=== PATIENT | male | born 1940 | race Caucasian/White ===

== ENCOUNTER 2016-11-23 15:55 | Outpatient (CLI) | payer MEDICARE, OTHER ==
[2016-05-11 11:20] VITALS: BP 152/58
== END 2016-11-23 15:56 ==
LOC: LAB 15:55
PROVIDERS: ATTEND Family Medicine
DX: Z51.81 Encounter for therapeutic drug level monitoring (principal); Z79.01 Long term (current) use of anticoagulants; I48.91 Unspecified atrial fibrillation
CPT/HCPCS: 36415; 85610

== ENCOUNTER 2016-11-24 13:18 | Emergency (ER) | payer MEDICARE, OTHER ==
--- NOTE | 2016-11-24 13:44 | ED Physician Documentation ---
General Adult - HISTORIAN Historian: patient, other - HPI Stated Complaint: loss of appetite Chief Complaint: General Adult Onset: days ago (5) Timing: still present Modifying Factors: worse with eating Quality: nausea Further Comments: yes (5 day history of nausea and stomach upset/achy pain. Constant in nature. No UTI symptoms, no fever or chills. feels slightly bloated. ) - ROS CONST: denies: fever, chills - PAST HX Past History: other (CAD) Other History: diabetes Type 2 (has been i nthe 200-300s) Surgeries/Procedures: cardiac bypass (4 vessels), cholecystectomy, other Immunizations: denies: influenza Allergies/Adverse Reactions: Allergies Allergy/AdvReac Type Severity Reaction Status Date / Time No Known Allergies Allergy Verified 11/24/16 13:36 Home Medications: Ambulatory Orders Medication Instructions Recorded Potassium Chloride [Klor-Con 10] 10 meq PO QID 05/29/15 Aspirin [Adult Low Dose Aspirin EC] 81 mg PO DAILY 04/28/16 Omeprazole [Prilosec] 20 mg PO DIRECTED #60 capsule. 11/24/16 - SOCIAL HX Smoking History: non-smoker, quit less than 1 year (3 month), greater than 1 pack/day (2-21.2 ppd prior to quitting) Alcohol Use: none Drug Use: none - FAMILY HX Family History: Yes - VITAL SIGNS Vital Signs: Vital Signs Temp Pulse Resp BP Pulse Ox 99.2 F 88 16 145/74 98 11/24/16 13:33 11/24/16 13:33 11/24/16 13:33 11/24/16 13:33 11/24/16 13:33 - REVIEWED ASSESSMENTS Nursing Assessment Reviewed: Yes Vitals Reviewed: Yes Progress - Results/Orders Results/Orders: Patient did get some relief from zofran General Adult Physical Exam - PHYSICAL EXAM GENERAL APPEARANCE: mild distress NECK: normal inspection, supple RESPIRATORY: no resp distress, chest non-tender, breath sounds normal. No: wheezes, rales, rhonchi CVS: reg rate & rhythm, heart sounds normal, equal pulses, no murmur ABDOMEN: soft, no organomegaly, normal bowel sounds, no abdominal bruit, no distension, tenderness (epigastric area). No: rebound, distended, guarding BACK: normal inspection, no CVA tenderness EXTREMITIES: non-tender, normal range of motion NEURO: mood/affect nml, cognition normal Discharge Clincal Impression: Epigastric abdominal pain Gastritis Qualifiers: Gastritis type: unspecified gastritis Chronicity: acute Gastritis bleeding: without bleeding Qualified Code(s): K29.00 - Acute gastritis without bleeding Prescriptions: Omeprazole [Prilosec] 20 mg PO DIRECTED #60 capsule.dr Referrals: Valerie Norton MD [Primary Care Provider] - 2 Days Additional Instructions: Start taking Omeprazole 20mg twice a day for one week then just once a day. Avoid irritating substances such as possibly caffeine, spicy food, alcohol. Stay off tobacco. Watch for blood in any vomit. Watch for stools becoming dark or blood in stools. To follow-up with Dr Norton in one to two weeks. Home Medications: Ambulatory Orders Potassium Chloride [Klor-Con 10] 10 meq PO QID 05/29/15 Aspirin [Adult Low Dose Aspirin EC] 81 mg PO DAILY 04/28/16 Omeprazole [Prilosec] 20 mg PO DIRECTED #60 capsule. 11/24/16 Condition: Stable Disposition: 01 HOME, SELF-CARE Decision to Admit: NO Date of Decison to Admit: 11/24/16 Decision Time: 15:49
[2016-11-24] MEDS ORDERED: MAGNESIUM HYDROXIDE/AL HYDROX 30 ML UDC PO ONE (14:26)
[2016-11-24] MEDS ORDERED: Lidocaine 2%Visc 15ml 20 MG/ML UDC ONE (14:26)
--- NOTE | 2016-11-24 14:39 | Diagnostic Imaging Report ---
ALVINO FALLON [facility] [address] [facility].[address] [address] Report Submission Date: Nov 24, 2016 2:34:47 PM MIRROR DEPARTMENT SUPERVISOR Patient Study Name: CONRADO LAUGHLIN Date: Nov 24, 2016 1:57:31 PM MIRROR DEPARTMENT SUPERVISOR Modality Type: CR Gender: M Description: ABDOMEN : 40 Institution: [facility] Physician: ALVINO FALLON Obstructive series with chest x-ray CLINICAL HISTORY: Epigastric pain. Nausea and vomiting. FINDINGS: Examination of the chest in single upright view demonstrates postoperative changes with multiple sternotomy wires. Cardiac silhouette is prominent and the aorta is atherosclerotic. Lungs are free of coalescent infiltrate. Examination of the abdomen in supine and upright views demonstrates postoperative changes with multiple surgical clips in the right upper quadrant from presumed prior cholecystectomy. Degenerative changes and mild dextroscoliosis are seen in the lumbar vertebrae. Left total hip replacement is demonstrated. There is no evidence of obstruction or free air. There are no unusual intra- abdominal calcifications. IMPRESSION: Postoperative abdomen. Lumbar spondylosis. Aortic atherosclerosis and left ventricular prominence. No obstruction or free air. Electronically signed on Nov 24, 2016 2:34:47 PM MIRROR DEPARTMENT SUPERVISOR by: Joe BOWLES
[2016-11-24 14:47] LABS: BASOPHILS % 0.2 (0.0-1.5); EOSINOPHILS % 1.6 % (0.0-6.8); LYMPHOCYTES # 1.4 # k/uL (0.6-4.0); MEAN CORPUSCULAR HEMOGLOBIN 29.5 pg (28.0-34.0); MONOCYTES # 0.6 # k/uL (0.0-0.9); MONOCYTES % 5.3 % (0.0-11.0); NEUTROPHILS # 8.7 # k/uL (1.4-7.7)
[2016-11-24] MEDS: MAG HYDROX/AL HYDROX/SIMETH 30 ML, Lidocaine 2%Visc 15ml 20 MG, PHENobarb/HYOSCY/ATROPI... PO ONE ×3 (14:56)
[2016-11-24] MEDS ORDERED: ONDANSETRON HCL/PF 4 MG/ 2ML VIAL ONE (15:04)
[2016-11-24] MEDS: ONDANSETRON HCL/PF 4 MG/ 2ML VIAL IVP ONE (15:05)
[2016-11-24 16:14] VITALS: BP 140/72
== END 2016-11-24 16:05 | disposition home or self-care (01) ==
LOC: ED 13:18
DX: K29.00 Acute gastritis without bleeding (principal)
CPT/HCPCS: 74022; 80053; 82150; 85025; A9270; J2405; 96374; 99283; 99284; S1016

== ENCOUNTER 2017-03-30 11:01 | Outpatient (CLI) | payer MEDICARE, OTHER ==
[2017-03-30 11:24] LABS: eGFR (African) 54; eGFR (Non-African) 45
== END 2017-03-30 11:02 ==
LOC: LABRHC 11:01
PROVIDERS: ATTEND Family Medicine
DX: E11.8 Type 2 diabetes mellitus with unspecified complications (principal); R41.3 Other amnesia
CPT/HCPCS: 36415; 80053; 83036; 84443

== ENCOUNTER 2017-05-11 14:15 | Emergency (ER) | payer MEDICARE, OTHER ==
--- NOTE | 2017-05-11 14:50 | ED Physician Documentation ---
General Adult - HISTORIAN Historian: patient - HPI Stated Complaint: swelling and wounds of feet and ankles Chief Complaint: General Adult Onset: other (? 2months ago) Timing: worse Further Comments: yes (Patient is diabetic and has developed wounds on both lankle area. Has been gradually getting bigger. Treating with alcohol and MERY, wrapping legs. Wounds seem to be getting bigger.) - ROS CONST: no problems - PAST HX Past History: other (CAD) Other History: diabetes Type 2 Surgeries/Procedures: cardiac bypass Allergies/Adverse Reactions: Allergies Allergy/AdvReac Type Severity Reaction Status Date / Time No Known Allergies Allergy Verified 05/11/17 14:38 Home Medications: Ambulatory Orders Medication Instructions Recorded Potassium Chloride [Klor-Con 10] 10 meq PO QID 05/29/15 Aspirin [Adult Low Dose Aspirin EC] 81 mg PO DAILY 04/28/16 - SOCIAL HX Smoking History: non-smoker, quit less than 1 year (6 months ago) Alcohol Use: none Drug Use: none - FAMILY HX Family History: No - VITAL SIGNS Vital Signs: Vital Signs Temp Pulse Resp BP Pulse Ox 140/72 11/24/16 16:11 - REVIEWED ASSESSMENTS Nursing Assessment Reviewed: Yes Vitals Reviewed: Yes General Adult Physical Exam - PHYSICAL EXAM GENERAL APPEARANCE: no distress RESPIRATORY: no resp distress, chest non-tender CVS: reg rate & rhythm, heart sounds normal SKIN: other (right anterior ankle 5x2.5; Left anterior ankle 2x1cm, 1x1cm) EXTREMITIES: non-tender, edema (4 plus) NEURO: oriented X3, mood/affect nml, cognition normal Discharge Clincal Impression: Venous stasis dermatitis of both lower extremities, Venous stasis ulcer Venous stasis ulcer of ankle Qualifiers: Laterality: right Qualified Code(s): I83.013 - 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 Watch for any signs of infection. Try to keep legs elevated as much as possible. Change Aquacel Ag dressing every day. Use Elta cream to legs then use Kermit wrap starting with the toes. Decrease salt intake. Home Medications: Ambulatory Orders Potassium Chloride [Klor-Con 10] 10 meq PO QID 05/29/15 Aspirin [Adult Low Dose Aspirin EC] 81 mg PO DAILY 04/28/16 Condition: Good Disposition: 01 HOME, SELF-CARE Decision to Admit: NO Date of Decison to Admit: 05/11/17 Decision Time: 15:16
[2017-05-11] MEDS: MENTHOL/ZINC OXIDE 1 APPL TUBE TP SCH (15:30)
[2017-05-11] MEDS ORDERED: MENTHOL/ZINC OXIDE 1 APPL TUBE TP SCH (15:44)
[2017-05-11 15:57] VITALS: BP 140/53
== END 2017-05-11 15:54 | disposition home or self-care (01) ==
LOC: ED 14:15
DX: I87.2 Venous insufficiency (chronic) (peripheral) (principal); I83.013 Varicose veins of right lower extremity with ulcer of ankle
CPT/HCPCS: 99283

== ENCOUNTER 2017-06-25 10:52 | Emergency (ER) | payer MEDICARE, OTHER ==
--- NOTE | 2017-06-25 11:11 | ED Physician Documentation ---
General Adult - HISTORIAN Historian: patient - HPI Stated Complaint: scrotal swelling Chief Complaint: General Adult Onset: days ago Timing: still present Severity: moderate Further Comments: yes (Pt is a 76 yo male with DMII, CAD, HTN, HLD, PVD with marked LE edema who presents with main complaint of markedly swollen scrotum, painful with movement/palpation and with rash in groin. Swollen scrotum was discovered by pt's campground caretaker/grandson who was trying to give him a shower.) - ROS CONST: other (Pt appears to be a poor historian, who does not admit pain.) EYES/ENT: none CVS/RESP: none GI/: other (painful swelling of scrotum with angry red rash in groin) MS/SKIN/LYMPH: rash (groin) - PAST HX Past History: other (Afib, CAD, HTN, HLD, COPD, DMII) Surgeries/Procedures: other (appendectomy, cholecystectomy, L hip replacement) Allergies/Adverse Reactions: Allergies Allergy/AdvReac Type Severity Reaction Status Date / Time No Known Allergies Allergy Verified 06/25/17 11:18 Home Medications: Ambulatory Orders Medication Instructions Recorded Aspirin [Adult Low Dose Aspirin EC] 81 mg PO DAILY 04/28/16 - SOCIAL HX Smoking History: quit less than 1 year, secondhand Alcohol Use: none Drug Use: none - FAMILY HX Family History: No - VITAL SIGNS Vital Signs: Vital Signs Temp Pulse Resp BP Pulse Ox 140/53 05/11/17 15:55 - REVIEWED ASSESSMENTS Nursing Assessment Reviewed: Yes Vitals Reviewed: Yes Progress - Progress Progress: 10 units insulin regular, sc Transfer to [facility], Dr. Magaly Rosales. General Adult Physical Exam - PHYSICAL EXAM GENERAL APPEARANCE: mild distress EENT: eye inspection normal NECK: normal inspection, supple RESPIRATORY: no resp distress, other (distant breath sounds) CVS: reg rate & rhythm, other (distant heart sounds) ABDOMEN: soft, tenderness (diffuse mild-moderate), decreased BS EXTREMITIES: edema (4+ edema with stasis ulcers) NEURO: motor nml, other (baseline ms.) Discharge Clincal Impression: Scrotal swelling, DMII, hyperglycemia, LE edema w ulceration, Venous stasis dermatitis of both lower extremities Elevated WBC count Qualifiers: Leukocytosis type: unspecified Qualified Code(s): D72.829 - Elevated white blood cell count, unspecified Referrals: Valerie Norton MD [Primary Care Provider] - Home Medications: Ambulatory Orders Aspirin [Adult Low Dose Aspirin EC] 81 mg PO DAILY 04/28/16 Condition: Stable Disposition: 02 XFER [id number]-TRM HOSP Decision to Admit: NO Decision Time: 13:01
[2017-06-25 11:44] LABS: BASOPHILS % 0.2 (0.0-1.5); EOSINOPHILS % 0.8 % (0.0-6.8); MEAN CORPUSCULAR HEMOGLOBIN 25.2 pg (28.0-34.0); MEAN CORPUSCULAR VOLUME 84.8 fl (80.0-100.0); MONOCYTES % 4.2 % (0.0-11.0); NEUTROPHILS # 11.3 # k/uL (1.4-7.7)
[2017-06-25] MEDS ORDERED: INSULIN REGULAR, HUMAN 100 UNIT/ML 3ML VIAL SQ ONE (12:18)
[2017-06-25 13:40] VITALS: BP 110/55
== END 2017-06-25 13:40 | disposition short-term general hospital (02) ==
LOC: ED 10:52
DX: N50.89 Other specified disorders of the male genital organs (principal); E11.65 Type 2 diabetes mellitus with hyperglycemia; R60.9 Edema, unspecified; I87.2 Venous insufficiency (chronic) (peripheral); D72.829 Elevated white blood cell count, unspecified
CPT/HCPCS: 80053; 85025; 87040; J1815; 96372; 99284; S1016

== ENCOUNTER 2017-07-01 11:30 | Inpatient (IN) | payer MEDICARE, OTHER ==
--- NOTE | 2017-07-01 12:20 | History and Physical Report ---
History of Present Illnes - History of Present Illness Reason for Visit: Weakness History of Present Illness: Patient admitted to [facility] for scrotal cellulitis and severe intertriginous candidiasis of scrotum. Treated with vancomycin and zosyn as well as nystatin powder and IV fluconazole. Patient lives with young grandson and has poor diabetic control. His A1C was 9.2 last week. Echo showed EF 45%. He did develop R elbow pain prior to discharge - no injury. Xrays negative. Uric acid up to 9.5 - prednisone taper started. This improved. Patient also reports scrotum is better. Has been transitioned to oral clindamycin. Patient too weak to return home so will be admitted to SNF for PT/OT. ([facility] reports he hasn't filled insulin since 03/03) - Past Medical History Cardiac: AFIB, CAD, HTN, Hyperlipidemia, Other (Chronic edema) Pulmonary: COPD Renal/: Chronic renal insuff (STage 3) Endocrine: Diabetes (type 2) - Past Surgical History Past Surgical History: Appendectomy, Cholecystectomy, Hernia Repair (inguinal), Total Hip Replacement (left), Tonsillectomy - Past Family History Mother Family History: (accident in early 30s) Father Family History: CVA, DM, (67yo) - Past Social History Smoke: 1 pack per day Alcohol: None Drugs: None Lives: With Family (20 y.o nephew) Domestic Violence: Negative - Health Maintenance Health Maintenance: Pneumococcal Vaccine. denies: Influenza Vaccine Influenza Vaccine: No Pneumonia Vaccine: Yes Resuscitation Status: Resusciation Status Resuscitation Status Full Code Review of Systems - Review of Systems Constitutional: Weakness. negative: Fever Eyes: negative: pain ENT: negative: Ear Pain, Nose Congestion Respiratory: negative: Cough Cardiovascular: negative: Chest Pain Gastrointestinal: negative: Nausea, Vomiting, Abdominal Pain Genitourinary: negative: Dysuria, Frequency Musculoskeletal: negative: Leg Pain Skin: negative: Rash Neurological: Weakness - Medications/Allergies Allergies/Adverse Reactions: Allergies Allergy/AdvReac Type Severity Reaction Status Date / Time No Known Allergies Allergy Verified 06/25/17 11:18 Home Medications: Home Medications Clindamycin HCl 150 mg PO QID 07/01/17 Ferrous Sulfate [Feosol] 325 mg PO BID 07/01/17 Polyethylene Glycol 3350 [Miralax] 17 gm PO 1100 09/14/17 predniSONE [Deltasone] 10 mg PO DIRECTED 07/01/17 Exam - Exam General: Alert, Oriented to Person, Oriented to Place, Oriented to Time, Cooperative, No acute distress HEENT: Atraumatic, PERRLA, EOMI, Mouth Mucous membr. moist/[place], Nose Mucous membr. moist/[place] Neck: Normal Range of Motion Lungs: Clear to auscultation, Normal air movement, Speaks full Sentences Cardiovascular: Regular rate Murmur: Systolic Murmur Abdomen: Normal bowel sounds, Soft, No tenderness Male Genitourinary: Other (Minimal edema and rash of scrotum) Integumentary: Normal Extremities: No: No edema Neurological: Generalized Weakness Psych/Mental Status: Mental status NL, Mood NL, Appropriate Affect, Intact Judgment Assessment/Plan - Assessment/Plan (1) Uncontrolled diabetes mellitus Status: Acute Current Visit: Yes Qualifiers: Diabetes mellitus type: type 2 Diabetes mellitus complication status: with other specified complication Diabetes mellitus intermediate accountant insulin use: with intermediate accountant use Qualified Code(s): E11.69 - Type 2 diabetes mellitus with other specified complication; E11.65 - Type 2 diabetes mellitus with hyperglycemia; Z79.4 - [facility]FP (current) use of insulin Plan: Will monitor BS. Suspect patient not using home insulin. Watch closely. Increase insulin as needed. Currently on prednisone for gout. 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 Plan allopurinol low dose when done. (3) Cellulitis of scrotum Status: Acute Current Visit: Yes Plan: Improved. Finish clindamycin. (4) Weakness Status: Acute Current Visit: No Plan: Admit for PT/OT. I am worried about his ability to return home to his previous living situation. (5) Atrial fibrillation Status: Chronic Current Visit: No Qualifiers: Atrial fibrillation type: chronic Qualified Code(s): I48.2 - Chronic atrial fibrillation Plan: Continue xarelto. (6) Renal insufficiency Status: Chronic Current Visit: No Plan: Chronic edema. He is on a lot of lasix. Watch. VTE Assessment - RISK FACTOR SCORE VTE RISK FACTOR SCORES: AGE OVER 60 YEARS, ANTICIPATED BED CONFINEMENT OR IMMOBILIZATION > 24 HOURS - RISK VTE MODERATE RISK: SCORE OF 2 (RISK PROXIMAL DVT 2-4%) PROPHYAXIS NEEDED
[2017-07-01] MEDS ORDERED: INSULIN DETEMIR 100 UNIT/ML 3ML PEN.INJCTR SQ SCH (17:00)
[2017-07-01] MEDS ORDERED: predniSONE 10 MG TABLET PO SCH (17:00)
[2017-07-01] MEDS ORDERED: INSULIN DETEMIR 100 UNIT/ML 3ML PEN.INJCTR SQ ONE (17:01)
[2017-07-01] MEDS: FERROUS SULFATE 325 MG TABLET PO SCH ×2 (17:09→21:49)
[2017-07-01] MEDS: CLINDAMYCIN HCL 150 MG CAPSULE PO SCH ×2 (17:09→21:49)
[2017-07-01] MEDS ORDERED: FUROSEMIDE 40 MG TABLET PO SCH (21:00)
[2017-07-01] MEDS: traMADol HCL 50 MG TABLET PO SCH (21:49)
[2017-07-01] MEDS: POTASSIUM CHLORIDE 20 MEQ TABLET.ER PO SCH (21:49)
[2017-07-01] MEDS: INSULIN DETEMIR 100 UNIT/ML 3ML PEN.INJCTR SQ SCH (21:52)
[2017-07-01 22:36] VITALS: BMI 40.1
[2017-07-01] MEDS ORDERED: ASPIRIN EC 325 MG TABLET.DR ONE (22:57)
[2017-07-02] MEDS: FUROSEMIDE 40 MG TABLET PO SCH ×2 (06:20→13:21)
[2017-07-02] MEDS: SIMVASTATIN 40 MG TABLET PO SCH (08:33)
[2017-07-02] MEDS: METOPROLOL SUCCINATE 50 MG TAB.ER.24H PO SCH (08:34)
[2017-07-02] MEDS: LISINOPRIL 2.5 MG TABLET PO SCH (08:36)
[2017-07-02] MEDS: POTASSIUM CHLORIDE 20 MEQ TABLET.ER PO SCH ×2 (08:38→20:09)
[2017-07-02] MEDS: CLINDAMYCIN HCL 150 MG CAPSULE PO SCH ×4 (08:40→20:09)
[2017-07-02] MEDS ORDERED: ASPIRIN 325 MG TABLET ONE (08:45)
[2017-07-02] MEDS: traMADol HCL 50 MG TABLET PO SCH ×2 (08:47→20:09)
[2017-07-02] MEDS ORDERED: predniSONE 10 MG TABLET PO SCH (09:00)
[2017-07-02] MEDS: ASPIRIN EC 81 MG TABLET.DR PO SCH (09:31)
[2017-07-02] MEDS: INSULIN LISPRO 100 UNIT/ML 3ML VIAL SQ SCH ×4 (09:35→17:59)
[2017-07-02] MEDS: RIVAROXABAN 15 MG TABLET PO SCH ×2 (11:06→18:02)
[2017-07-02] MEDS: FERROUS SULFATE 325 MG TABLET PO SCH ×2 (11:29→18:02)
[2017-07-02] MEDS: POLYETHYLENE GLYCOL 3350 17 GM POWD.PACK PO SCH (11:47)
[2017-07-02] MEDS: INSULIN DETEMIR 100 UNIT/ML 3ML PEN.INJCTR SQ SCH (20:11)
[2017-07-03] MEDS: FUROSEMIDE 40 MG TABLET PO SCH ×2 (05:54→13:41)
[2017-07-03] MEDS: INSULIN LISPRO 100 UNIT/ML 3ML VIAL SQ SCH ×3 (07:35→16:50)
[2017-07-03] MEDS: CLINDAMYCIN HCL 150 MG CAPSULE PO SCH ×4 (09:05→20:04)
[2017-07-03] MEDS: POTASSIUM CHLORIDE 20 MEQ TABLET.ER PO SCH ×2 (09:06→20:04)
[2017-07-03] MEDS: ASPIRIN EC 81 MG TABLET.DR PO SCH (09:09)
[2017-07-03] MEDS: predniSONE 10 MG TABLET PO SCH (09:09)
[2017-07-03] MEDS: METOPROLOL SUCCINATE 50 MG TAB.ER.24H PO SCH (09:09)
[2017-07-03] MEDS: LISINOPRIL 2.5 MG TABLET PO SCH (09:09)
[2017-07-03] MEDS: SIMVASTATIN 40 MG TABLET PO SCH (09:10)
[2017-07-03] MEDS: traMADol HCL 50 MG TABLET PO SCH ×2 (09:12→20:04)
[2017-07-03] MEDS: FERROUS SULFATE 325 MG TABLET PO SCH ×2 (11:36→20:04)
[2017-07-03] MEDS: POLYETHYLENE GLYCOL 3350 17 GM POWD.PACK PO SCH (11:41)
[2017-07-03] MEDS: RIVAROXABAN 15 MG TABLET PO SCH (16:53)
[2017-07-03] MEDS: INSULIN DETEMIR 100 UNIT/ML 3ML PEN.INJCTR SQ SCH (20:02)
[2017-07-04] MEDS: FUROSEMIDE 40 MG TABLET PO SCH ×2 (06:16→13:53)
[2017-07-04] MEDS: INSULIN LISPRO 100 UNIT/ML 3ML VIAL SQ SCH ×3 (07:18→16:54)
[2017-07-04] MEDS: METOPROLOL SUCCINATE 50 MG TAB.ER.24H PO SCH (08:56)
[2017-07-04] MEDS: CLINDAMYCIN HCL 150 MG CAPSULE PO SCH ×4 (08:56→19:46)
[2017-07-04] MEDS: POTASSIUM CHLORIDE 20 MEQ TABLET.ER PO SCH ×2 (08:56→19:47)
[2017-07-04] MEDS: ASPIRIN EC 81 MG TABLET.DR PO SCH (08:57)
[2017-07-04] MEDS: SIMVASTATIN 40 MG TABLET PO SCH (08:57)
[2017-07-04] MEDS: traMADol HCL 50 MG TABLET PO SCH ×2 (08:58→19:47)
[2017-07-04] MEDS: predniSONE 10 MG TABLET PO SCH (08:58)
[2017-07-04] MEDS: LISINOPRIL 2.5 MG TABLET PO SCH (08:59)
[2017-07-04] MEDS: FERROUS SULFATE 325 MG TABLET PO SCH ×2 (10:46→18:18)
[2017-07-04] MEDS: POLYETHYLENE GLYCOL 3350 17 GM POWD.PACK PO SCH (10:46)
[2017-07-04] MEDS: RIVAROXABAN 15 MG TABLET PO SCH (16:18)
[2017-07-04] MEDS: INSULIN DETEMIR 100 UNIT/ML 3ML PEN.INJCTR SQ SCH (19:46)
[2017-07-05] MEDS ORDERED: GABAPENTIN 300 MG CAPSULE ONE (05:37)
[2017-07-05] MEDS ORDERED: TOLTERODINE TARTRATE 2 MG CAP.ER.24H ONE (05:37)
[2017-07-05] MEDS ORDERED: SENNOSIDES 8.6 MG TABLET PO ONE (05:37)
[2017-07-05] MEDS: FUROSEMIDE 40 MG TABLET PO SCH ×2 (06:15→14:00)
[2017-07-05] MEDS: INSULIN LISPRO 100 UNIT/ML 3ML VIAL SQ SCH ×3 (07:35→16:35)
[2017-07-05] MEDS: POTASSIUM CHLORIDE 20 MEQ TABLET.ER PO SCH ×2 (07:38→20:46)
[2017-07-05] MEDS: CLINDAMYCIN HCL 150 MG CAPSULE PO SCH ×4 (07:38→20:46)
[2017-07-05] MEDS: LISINOPRIL 2.5 MG TABLET PO SCH (07:41)
[2017-07-05] MEDS: ASPIRIN EC 81 MG TABLET.DR PO SCH (07:41)
[2017-07-05] MEDS: SIMVASTATIN 40 MG TABLET PO SCH (07:42)
[2017-07-05] MEDS: METOPROLOL SUCCINATE 50 MG TAB.ER.24H PO SCH (07:42)
[2017-07-05] MEDS: predniSONE 10 MG TABLET PO SCH (07:44)
[2017-07-05] MEDS: traMADol HCL 50 MG TABLET PO SCH ×2 (08:02→20:46)
[2017-07-05] MEDS: FERROUS SULFATE 325 MG TABLET PO SCH ×2 (10:45→18:41)
[2017-07-05] MEDS: POLYETHYLENE GLYCOL 3350 17 GM POWD.PACK PO SCH (12:01)
[2017-07-05] MEDS: RIVAROXABAN 15 MG TABLET PO SCH (16:33)
[2017-07-05] MEDS: INSULIN DETEMIR 100 UNIT/ML 3ML PEN.INJCTR SQ SCH (20:51)
[2017-07-06] MEDS: FUROSEMIDE 40 MG TABLET PO SCH ×2 (06:07→13:33)
[2017-07-06] MEDS: CLINDAMYCIN HCL 150 MG CAPSULE PO SCH ×4 (07:39→20:54)
[2017-07-06] MEDS: POTASSIUM CHLORIDE 20 MEQ TABLET.ER PO SCH ×2 (07:40→20:54)
[2017-07-06] MEDS: traMADol HCL 50 MG TABLET PO SCH ×2 (07:40→20:54)
[2017-07-06] MEDS: ASPIRIN EC 81 MG TABLET.DR PO SCH (07:41)
[2017-07-06] MEDS: METOPROLOL SUCCINATE 50 MG TAB.ER.24H PO SCH (07:41)
[2017-07-06] MEDS: LISINOPRIL 2.5 MG TABLET PO SCH (07:41)
[2017-07-06] MEDS: SIMVASTATIN 40 MG TABLET PO SCH (07:42)
[2017-07-06] MEDS: predniSONE 10 MG TABLET PO SCH (07:42)
[2017-07-06] MEDS: INSULIN LISPRO 100 UNIT/ML 3ML VIAL SQ SCH ×3 (07:43→16:47)
[2017-07-06] MEDS: POLYETHYLENE GLYCOL 3350 17 GM POWD.PACK PO SCH (11:21)
[2017-07-06] MEDS: FERROUS SULFATE 325 MG TABLET PO SCH ×2 (11:49→18:47)
[2017-07-06] MEDS: RIVAROXABAN 15 MG TABLET PO SCH (16:50)
[2017-07-06] MEDS: INSULIN DETEMIR 100 UNIT/ML 3ML PEN.INJCTR SQ SCH (20:58)
[2017-07-07] MEDS: FUROSEMIDE 40 MG TABLET PO SCH ×2 (06:27→14:37)
[2017-07-07] MEDS: INSULIN LISPRO 100 UNIT/ML 3ML VIAL SQ SCH ×3 (07:30→17:22)
[2017-07-07] MEDS: predniSONE 10 MG TABLET PO SCH (07:40)
[2017-07-07] MEDS: METOPROLOL SUCCINATE 50 MG TAB.ER.24H PO SCH (07:40)
[2017-07-07] MEDS: POTASSIUM CHLORIDE 20 MEQ TABLET.ER PO SCH ×2 (07:41→20:30)
[2017-07-07] MEDS: SIMVASTATIN 40 MG TABLET PO SCH (07:41)
[2017-07-07] MEDS: ASPIRIN EC 81 MG TABLET.DR PO SCH (07:41)
[2017-07-07] MEDS: CLINDAMYCIN HCL 150 MG CAPSULE PO SCH ×4 (07:41→20:30)
[2017-07-07] MEDS: LISINOPRIL 2.5 MG TABLET PO SCH (07:41)
[2017-07-07] MEDS: traMADol HCL 50 MG TABLET PO SCH ×2 (07:44→20:33)
[2017-07-07] MEDS ORDERED: INSULIN DETEMIR 100 UNIT/ML 3ML PEN.INJCTR SQ SCH (08:34)
[2017-07-07] MEDS: FERROUS SULFATE 325 MG TABLET PO SCH ×2 (11:34→18:43)
[2017-07-07] MEDS: POLYETHYLENE GLYCOL 3350 17 GM POWD.PACK PO SCH (11:34)
[2017-07-07] MEDS: RIVAROXABAN 15 MG TABLET PO SCH (17:24)
[2017-07-08] MEDS: FUROSEMIDE 40 MG TABLET PO SCH ×2 (05:54→13:25)
[2017-07-08] MEDS: INSULIN LISPRO 100 UNIT/ML 3ML VIAL SQ SCH ×2 (07:16→11:16)
--- NOTE | 2017-07-08 08:19 | Discharge Summary ---
Discharge Summary - Discharge Sumary History of Present Illness: Patient admitted to [facility] for scrotal cellulitis and severe intertriginous candidiasis of scrotum. Treated with vancomycin and zosyn as well as nystatin powder and IV fluconazole. Patient lives with young grandson and has poor diabetic control. His A1C was 9.2 last week. Echo showed EF 45%. He did develop R elbow pain prior to discharge - no injury. Xrays negative. Uric acid up to 9.5 - prednisone taper started. This improved. Patient also reports scrotum is better. Has been transitioned to oral clindamycin. Patient too weak to return home so will be admitted to SNF for PT/OT. [facility] reports no insulin filled since 03/03. Condition at Discharge: Stable Home Medications: Ambulatory Orders Medication Instructions Recorded Aspirin [Adult Low Dose Aspirin EC] 81 mg PO DAILY 04/28/16 Ferrous Sulfate [Feosol] 325 mg PO BID #60 tablet 07/08/17 Furosemide [Lasix] 40 mg PO BID #60 tablet 07/08/17 Insulin Lispro 3Ml [Humalog] 25 unit SQ AC30 vial 07/08/17 Polyethylene Glycol 3350 [Miralax] 17 gm PO 1100 #30 powd.pack 07/08/17 Consultations this Visit: None Procedures this Visit: None Allergies/Adverse Reactions: Allergies Allergy/AdvReac Type Severity Reaction Status Date / Time No Known Allergies Allergy Verified 06/25/17 11:18 Patient Problems: Current Active Problems Problem Status Onset Cellulitis of scrotum Acute Gout Acute Uncontrolled diabetes mellitus Acute Discharge Summary: Patient was admitted for PT/OT due to weakness after being hospitalized with scrotal cellulitis. When he arrived, scrotum looked normal. No concerns while in SNF. Completed nystatin and clindamycin. Also completed prednisone from his gout flare. Has numerous chronic wounds for which he sees the wound clinic. We continued current treatments on these while here. ON Xarelto for Afib so no lovenox for DVT's but MICHEAL placed. BS remained 200-300. Insulin adjusted accordingly. Will monitor and f/u as outpatient. Patient will benefit from continued therapy and is unable to drive. Therefore Home Health is ordered. Hospital Course: Discharge Dx: Weakness. Scrotal celluitis. Uncontrolled DM with numerous chronic wounds. Gout. HTN. Afib. Disposition - home with home health
[2017-07-08] MEDS: ASPIRIN EC 81 MG TABLET.DR PO SCH (09:29)
[2017-07-08] MEDS: POTASSIUM CHLORIDE 20 MEQ TABLET.ER PO SCH (09:29)
[2017-07-08] MEDS: LISINOPRIL 2.5 MG TABLET PO SCH (09:29)
[2017-07-08] MEDS: METOPROLOL SUCCINATE 50 MG TAB.ER.24H PO SCH (09:30)
[2017-07-08] MEDS: SIMVASTATIN 40 MG TABLET PO SCH (09:31)
[2017-07-08] MEDS: predniSONE 10 MG TABLET PO SCH (09:32)
[2017-07-08] MEDS: traMADol HCL 50 MG TABLET PO SCH (09:35)
[2017-07-08 10:16] VITALS: BP 147/62
[2017-07-08] MEDS: FERROUS SULFATE 325 MG TABLET PO SCH (10:48)
[2017-07-08] MEDS: POLYETHYLENE GLYCOL 3350 17 GM POWD.PACK PO SCH (11:14)
== END 2017-07-08 15:15 | disposition home health service (06) | DRG 884 ==
LOC: SOUTH 11:30
PROVIDERS: ADMIT Family Medicine; ATTEND Family Medicine
DX: R54 Age-related physical debility (principal); E11.65 Type 2 diabetes mellitus with hyperglycemia; E11.622 Type 2 diabetes mellitus with other skin ulcer; L98.499 Non-pressure chronic ulcer of skin of other sites with unspecified severity; M10.9 Gout, unspecified; I10 Essential (primary) hypertension; I48.91 Unspecified atrial fibrillation; Z79.01 Long term (current) use of anticoagulants
CPT/HCPCS: 97112; 97116; 97162; 97165; 97530; 97535; A9270; J1815; J7512

== ENCOUNTER 2017-09-02 15:34 | Inpatient (IN) | payer MEDICARE, OTHER ==
--- NOTE | 2017-09-06 09:34 | History and Physical Report ---
CHIEF COMPLAINT: Weakness. HISTORY OF PRESENT ILLNESS: This is a 76-year-old male who was admitted to [facility] care from [facility]. He was originally admitted to [facility] with cellulitis of his bilateral lower extremities. He has chronic edema of the lower extremities. He was found to have bacteremia with Streptococcus pyogenes in 2 of 2 blood cultures. The next of the blood cultures were negative. During that time, he had a JONO that was negative. It showed an ejection fraction of 44 %. The Streptococcus pyogenes was pansensitive. He was treated originally with Zosyn and this was changed over to Levaquin. He will complete this course on September 10, 2017. He also was found to have some gout with a uric acid of 11 and it came down to 9.7 while on allopurinol. He also was seen by Dr. Johnson and diagnosed with rheumatoid arthritis. He was started on prednisone originally 5 mg twice a day, but when the cellulitis improved, it went to 10 mg twice a day. He has some groin candidiasis they have been treating. His baseline creatinine appears to be 2.2 to 2.5. While at the hospital, he had a negative CT of his leg looking for an abscess and also a negative DVT scan. He had a Fernández that was placed for skin irritation and was discharged the day before transfer. On discharge, he was felt to be too weak to go home, but in the past, has not done very well with physical therapy. So, it was elected to put him in ICF and do a little bit of therapy and once he gets stronger, he will go to [facility], if he still qualifies. PAST MEDICAL HISTORY: 1. Cellulitis of his scrotum on June 29, 2017. 2. Chronic kidney disease, Stage 3. 3. Coronary artery disease. 4. Diabetes. 5. Diastolic heart failure with an ejection fraction of 44%. 6. Hyperlipidemia. 7. Hypertension. 8. Chronic nonhealing wounds for which he sees [facility] for. 9. Paroxysmal atrial fibrillation. 10. Non-controlled diabetic type 2. 11. Chronic peripheral edema. 12. Some COPD. 13. Some chronic nocturnal hypoxia in the past and has always refused sleep studies. PAST SURGICAL HISTORY: 1. CABG in 2003. 2. Inguinal hernia repair. 3. Right first toe amputation. 4. Tonsillectomy. 5. Cholecystectomy. MEDICATIONS: 1. Calcium with vitamin D daily. 2. Ferrous sulfate 325 mg b.i.d. 3. Lasix 40 mg tablet. He takes 60 mg twice a day. 4. Lantus 15 units at night. Please note: In the past, the patient has been on 50 units at night. 5. Lisinopril 2.5 mg daily. 6. Toprol XL 25 mg daily. 7. MiraLAX daily. 8. Potassium 20 mEq. He takes 40 mEq b.i.d. 9. Prednisone 10 mg b.i.d. 10. Simvastatin 40 mg daily. 11. Tramadol 100 mg b.i.d. 12. Xarelto 15 mg daily. CODE STATUS: FULL CODE. IMMUNIZATIONS: 1. A flu shot was given at [facility] last week. 2. Pneumonia 13 was on April 01, 2016. 3. Pneumonia 23 was given last in 2009. SOCIAL HISTORY: He is . He currently lives with his grandson, Bienvenido. However, his 2 sons do try to help out. He quit smoking in October of 2016. Alcohol: Occasional. FAMILY HISTORY: Significant for heart disease. REVIEW OF SYSTEMS: He denies fever, chills, loss of appetite, problems with his ears or eyes. No chest pain. No shortness of breath. No abdominal pain. No vomiting or diarrhea. No pain on urination. Positive for edema and weakness. PHYSICAL EXAMINATION: Vital Signs: T: 98.2, P: 80, R: 20, BP: 140/72. General: A well-nourished male in no acute distress. He is alert and oriented x3. He appears chronically ill. HEENT: TMs are clear. Pharynx is pink and moist. Neck: Supple. Lungs: Clear to auscultation bilaterally. Heart: Regular rate and rhythm without a murmur. Abdomen: Soft and nontender. Extremities: Show 3+ edema bilaterally. Groin Exam: His groin is erythematous. Skin: His skin has several broken down areas including wounds on his feet and one on his right shoulder. ASSESSMENT AND PLAN: 1. Weakness. We will admit to [facility]CF and get him set up with physical and occupational therapy and may progress to senior care at some point if he gets stronger; however, today, he is barely even bearing any weight and unable to walk. 2. Cellulitis. We will finish out his Levaquin on September 10, 2017. We will continue it at 500 mg daily based on his GFR by [facility]. 3. Diabetes mellitus. We will check his blood sugars and adjust insulin regimen accordingly. We will try to do diet control. 4. Rheumatoid arthritis, new onset. We will have Dr. Johnson see him tomorrow. Continue his prednisone. Certainly, this is going to drive his blood sugars higher, so at this time, we do have him on Humalog. We may need to think about sliding scale insulin. 5. Chronic wounds. We will have him see the wound clinic at [facility] as already scheduled. 6. Groin candidiasis. We need to continue Nystatin powder. 7. Gout. Newly added allopurinol. We will check uric acid in the future. MTDD
--- NOTE | 2017-09-11 12:07 | Diagnostic Imaging Report ---
GABRIEL ALMONTE [facility] [address] [facility] [address] [address] Report Submission Date: Sep 11, 2017 4:00:21 AM SANITARY LANDFILL SUPERVISOR Patient Study Name: CONRADO LAUGHLIN Date: Sep 11, 2017 3:50:59 AM SANITARY LANDFILL SUPERVISOR Modality Type: CR Gender: M Description: CHEST : 40 Institution: [facility] Physician: GABRIEL ALMONTE Portable chest History: Shortness of breath Findings: Moderate bilateral diffuse interstitial infiltrate edema is observed. Low lung volumes are present. Heart size is upper normal. Pulmonary vascular congestion and median sternotomy are observed. A small right pleural effusion may be present. Obesity is noted. Impression: 1. Obesity and low lung volumes. 2. Pulmonary edema versus interstitial infiltrate. 3. Pulmonary vascular congestion. 4. Sternotomy. Electronically signed on Sep 11, 2017 4:00:21 AM SANITARY LANDFILL SUPERVISOR by: Pineda BOWLES
--- NOTE | 2017-09-16 14:54 | Discharge Summary ---
DATE OF ADMISSION: September 02, 2017 DATE OF DISCHARGE: September 13, 2017 DISCHARGE DIAGNOSES: 1. Weakness. 2. Diabetes. 3. Cellulitis. 4. Coronary artery disease. HOSPITAL COURSE: Patient was admitted from [facility] with cellulitis with bacteremia and weakness as he was too weak to do physical therapy. He did do some outpatient therapy while in [facility] care and was able to progress to be moved to skilled therapy. His blood sugars were somewhat out of range in the 300 range. Due to his noncompliance with his diet and he would eat a lot of candy and sweets that the family would bring in and he would get from his neighbor, insulin doses were adjusted and we will continue to monitor this on the skilled unit. CONDITION ON DISCHARGE: Fair. DISCHARGE DIET: No concentrated sweets. No added salt. DISCHARGE ACTIVITY: Ad ivan. MEDICATIONS ON DISCHARGE: 1. Allopurinol 100 mg in the morning. 2. Lasix 60 mg twice a day. 3. Zocor 40 mg at night. 4. Metoprolol succinate 25 mg daily. 5. Iron sulfate 325 mg b.i.d. 6. Prednisone 10 mg b.i.d. 7. Nystatin powder to groin b.i.d. 8. Calcium with vitamin D 500 mg daily. 9. Tramadol 50 mg every 6 hours p.r.n. pain. 10. Xarelto 15 mg at night. 11. Humalog 20 units subcutaneously with meals. 12. Lantus 25 units at night. 13. Skin prep to bilateral heels b.i.d. 14. Calmoseptine barrier cream p.r.n. MTDD
== END 2017-09-13 13:21 | DRG 948 ==
LOC: ICF 15:34
PROVIDERS: ADMIT Family Medicine; ATTEND Family Medicine
DX: R53.1 Weakness (principal)
CPT/HCPCS: 71010

== ENCOUNTER 2017-09-13 13:22 | Inpatient (IN) | payer MEDICARE, OTHER ==
[2017-09-13] MEDS ORDERED: ALLOPURINOL 100 MG TABLET PO SCH (16:00)
--- NOTE | 2017-09-13 16:26 | History and Physical Report ---
History of Present Illnes - History of Present Illness Reason for Visit: Weakness History of Present Illness: Patient had been admitted to [facility] last week after a stay at [facility] due to cellulitis with bacteremia. Thought to be too weak to participate in PT so admitted to [facility] with some therapy. Patient has progressed and getting stronger so therapy thought he now would do better in SNF. His BS have been up and down - non compliant patient - eating a lot of candy. - Past Medical History Cardiac: AFIB, CAD, HTN, Hyperlipidemia, Other (Chronic edema) Pulmonary: COPD Renal/: Chronic renal insuff (STage 3) Endocrine: Diabetes (type 2) - Past Surgical History Past Surgical History: Appendectomy, Cholecystectomy, Hernia Repair (inguinal), Total Hip Replacement (left), Tonsillectomy - Past Family History Mother Family History: (accident in early 30s) Father Family History: CVA, DM, (67yo) - Past Social History Smoke: 1 pack per day Alcohol: None Drugs: None Lives: With Family (20 y.o nephew) Domestic Violence: Negative - Health Maintenance Health Maintenance: Pneumococcal Vaccine. denies: Influenza Vaccine Influenza Vaccine: Current for this Influenza Season Pneumonia Vaccine: Yes Resuscitation Status: Resusciation Status Resuscitation Status Full Code Review of Systems - Review of Systems Constitutional: Weakness. negative: Fever Eyes: negative: pain ENT: negative: Ear Pain Respiratory: negative: Cough Cardiovascular: negative: Chest Pain Gastrointestinal: negative: Nausea Genitourinary: negative: Dysuria Musculoskeletal: negative: Neck Pain Skin: negative: Rash Neurological: Weakness - Medications/Allergies Allergies/Adverse Reactions: Allergies Allergy/AdvReac Type Severity Reaction Status Date / Time No Known Allergies Allergy Verified 06/25/17 11:18 Home Medications: Home Medications Allopurinol [Zyloprim] 100 mg PO QD 09/13/17 Calcium Carbonate/Vitamin D3 [Calcium 500 + Vit D 200 Tablet] 1 tab PO DAILY Ferrous Sulfate [Feosol] 325 mg PO BID 09/13/17 Furosemide [Lasix] 60 mg PO 714 09/13/17 Insulin Glargine,Hum.rec.anlog [Lantus Solostar] 20 unit SQ HS 09/13/17 Insulin Lispro [Humalog] 15 unit SQ AC15 09/13/17 Menthol/Zinc Oxide [Calmoseptine Ointment] 1 appl TOP PRN PRN 09/13/17 Nystatin Powder [Nystop] 1 appl TP BID 09/13/17 Tramadol HCl [Ultram] 50 mg PO Q6 PRN 09/13/17 Current Inpatient Medications: Current Inpatient Medications Allopurinol (Zyloprim) 100 mg PO QD [facility] Calamine/Phenol (Calmoseptine Ointment) 1 appl TP PRN PRN PRN Reason: Dry Skin Calcium/Vitamin D (Calcium 500 + Vit D 200 Tablet) 1 each PO DAILY [facility] Ferrous Sulfate (Feosol) 325 mg PO BID@0800,1700 [facility] Furosemide (Lasix) 60 mg PO 714 [facility] Insulin Detemir (Levemir Flex-Pen) 20 unit SQ HS [facility] Insulin Human Lispro (Humalog) 15 unit SQ AC15 [facility] Metoprolol Succinate (Toprol Xl) 25 mg PO DAILY [facility] Miscellaneous (Chem Sticks) 1 each CHEMQID [facility] Last Admin: 09/13/17 16:14 Dose: 1 each Nystatin (Nystop) 1 gm TP BID [facility] Stop: 09/23/17 16:59 Polyethylene Glycol (Miralax) 17 gm PO 1100 [facility] Prednisone (Deltasone) 10 mg PO BID [facility] Rivaroxaban (Xarelto) 15 mg PO DAILY@1700 [facility] Simvastatin (Zocor) 40 mg PO DAILY [facility] Tramadol HCl (Ultram) 50 mg PO Q6 PRN PRN Reason: PAIN Exam - Exam Vital Signs: Vital Signs (72 hours) 09/13/17 14:06 Temperature 97.5 F L Pulse Rate [ 55 L Left] Respiratory 18 Rate Blood Pressure 136/61 [Left Arm] O2 Sat by Pulse 97 Oximetry General: Alert, Oriented to Person, Oriented to Place, Oriented to Time, Cooperative, No acute distress HEENT: Atraumatic, PERRLA, EOMI, Mouth Mucous membr. moist/[place] Neck: Normal Range of Motion Lungs: Clear to auscultation, Normal air movement, Speaks full Sentences Cardiovascular: Regular rate Abdomen: Normal bowel sounds, Soft, No tenderness Integumentary: Other (Large amounts of edema BLE. Skin breakdown improved over last week.) Extremities: No: No edema Neurological: Normal speech, Strength Equal Bilat, Generalized Weakness Psych/Mental Status: Mental status NL, Mood NL, Appropriate Affect, Intact Judgment Assessment/Plan - Assessment/Plan (1) Uncontrolled diabetes mellitus Status: Acute Qualifiers: Diabetes mellitus type: type 2 Diabetes mellitus complication status: with other specified complication Diabetes mellitus snf insulin use: with termite control servicer use Qualified Code(s): E11.69 - Type 2 diabetes mellitus with other specified complication; E11.65 - Type 2 diabetes mellitus with hyperglycemia; Z79.4 - senior care (current) use of insulin Plan: Encourage patient to be compliant. Adjust insulin accordingly. (2) Venous stasis dermatitis of both lower extremities Status: Acute Plan: MICHEAL hose if tolerated. May need ALISSON wraps. (3) Weakness Status: Acute Plan: PT/OT to work with patient. Certainly need to consider placement. (4) Atrial fibrillation Status: Chronic Qualifiers: Atrial fibrillation type: chronic Qualified Code(s): I48.2 - Chronic atrial fibrillation Plan: ON Xarelto for CVA prevention. Will use for DVT prevention. VTE Assessment - RISK FACTOR SCORE VTE RISK FACTOR SCORES: AGE OVER 60 YEARS, LEG SWELLING, ULCERS, VARICOSE VEINS - RISK VTE MODERATE RISK: SCORE OF 2 (RISK PROXIMAL DVT 2-4%) PROPHYAXIS NEEDED
[2017-09-13] MEDS ORDERED: INSULIN LISPRO 100 UNIT/ML 3ML VIAL SQ SCH ×3 (16:45→19:12)
[2017-09-13 17:22] VITALS: BMI 41.8
[2017-09-13] MEDS: INSULIN LISPRO 100 UNIT/ML 3ML VIAL SQ SCH (17:22)
[2017-09-13] MEDS: RIVAROXABAN 15 MG TABLET PO SCH ×2 (18:47→20:40)
[2017-09-13] MEDS: NYSTATIN POWDER BOTTLE TP SCH ×2 (19:10→20:42)
[2017-09-13] MEDS: INSULIN DETEMIR 100 UNIT/ML 3ML PEN.INJCTR SQ SCH (20:37)
[2017-09-13] MEDS: predniSONE 10 MG TABLET PO SCH (20:40)
[2017-09-13] MEDS: FERROUS SULFATE 325 MG TABLET PO SCH (20:40)
[2017-09-14] MEDS ORDERED: SIMVASTATIN 40 MG TABLET ONE (00:21)
[2017-09-14] MEDS ORDERED: METOPROLOL SUCCINATE 50 MG TAB.ER.24H PO ONE (00:21)
[2017-09-14] MEDS ORDERED: CALCIUM CARB 500/VIT D 200 1 EACH TABLET ONE (00:22)
[2017-09-14] MEDS ORDERED: ALLOPURINOL 100 MG TABLET ONE (00:22)
[2017-09-14] MEDS: FUROSEMIDE 20 MG TABLET PO SCH ×2 (05:59→14:12)
[2017-09-14] MEDS: INSULIN LISPRO 100 UNIT/ML 3ML VIAL SQ SCH ×3 (08:55→16:58)
[2017-09-14] MEDS: CALCIUM CARBONATE PO SCH (08:56)
[2017-09-14] MEDS: predniSONE 10 MG TABLET PO SCH ×2 (08:56→19:31)
[2017-09-14] MEDS: [UNRECOGNIZED DRUG - OTHER] PO SCH (08:56)
[2017-09-14] MEDS: FERROUS SULFATE 325 MG TABLET PO SCH ×2 (08:56→16:56)
[2017-09-14] MEDS: METOPROLOL SUCCINATE 50 MG TAB.ER.24H PO SCH (08:57)
[2017-09-14] MEDS: SIMVASTATIN 40 MG TABLET PO SCH (08:57)
[2017-09-14] MEDS: ALLOPURINOL 100 MG TABLET PO SCH (08:57)
[2017-09-14] MEDS: NYSTATIN POWDER BOTTLE TP SCH ×2 (11:22→19:36)
[2017-09-14] MEDS: POLYETHYLENE GLYCOL 3350 17 GM POWD.PACK PO SCH (11:23)
[2017-09-14] MEDS: RIVAROXABAN 15 MG TABLET PO SCH (16:56)
[2017-09-14] MEDS: INSULIN DETEMIR 100 UNIT/ML 3ML PEN.INJCTR SQ SCH (19:34)
[2017-09-15] MEDS ORDERED: CALCIUM CARB 500/VIT D 200 1 EACH TABLET ONE (05:39)
[2017-09-15] MEDS: FUROSEMIDE 20 MG TABLET PO SCH ×2 (05:53→14:11)
[2017-09-15] MEDS: INSULIN LISPRO 100 UNIT/ML 3ML VIAL SQ SCH ×3 (07:31→16:51)
[2017-09-15] MEDS: FERROUS SULFATE 325 MG TABLET PO SCH ×2 (08:15→16:54)
[2017-09-15] MEDS: [UNRECOGNIZED DRUG - OTHER] PO SCH (09:27)
[2017-09-15] MEDS: predniSONE 10 MG TABLET PO SCH ×2 (09:27→20:14)
[2017-09-15] MEDS: CALCIUM CARBONATE PO SCH (09:27)
[2017-09-15] MEDS: METOPROLOL SUCCINATE 50 MG TAB.ER.24H PO SCH (09:28)
[2017-09-15] MEDS: ALLOPURINOL 100 MG TABLET PO SCH (09:29)
[2017-09-15] MEDS: SIMVASTATIN 40 MG TABLET PO SCH (09:29)
[2017-09-15] MEDS: NYSTATIN POWDER BOTTLE TP SCH ×2 (09:38→20:15)
[2017-09-15] MEDS: POLYETHYLENE GLYCOL 3350 17 GM POWD.PACK PO SCH (11:09)
[2017-09-15] MEDS: RIVAROXABAN 15 MG TABLET PO SCH (16:54)
[2017-09-15] MEDS: INSULIN DETEMIR 100 UNIT/ML 3ML PEN.INJCTR SQ SCH (20:27)
[2017-09-16] MEDS ORDERED: CALCIUM CARB 500/VIT D 200 1 EACH TABLET ONE (05:54)
[2017-09-16] MEDS: FUROSEMIDE 20 MG TABLET PO SCH ×2 (06:03→13:44)
[2017-09-16] MEDS: INSULIN LISPRO 100 UNIT/ML 3ML VIAL SQ SCH ×3 (07:41→16:24)
[2017-09-16] MEDS: SIMVASTATIN 40 MG TABLET PO SCH (08:26)
[2017-09-16] MEDS: CALCIUM CARBONATE PO SCH (08:26)
[2017-09-16] MEDS: predniSONE 10 MG TABLET PO SCH ×2 (08:26→19:35)
[2017-09-16] MEDS: [UNRECOGNIZED DRUG - OTHER] PO SCH (08:26)
[2017-09-16] MEDS: METOPROLOL SUCCINATE 50 MG TAB.ER.24H PO SCH (08:26)
[2017-09-16] MEDS: ALLOPURINOL 100 MG TABLET PO SCH (08:26)
[2017-09-16] MEDS: FERROUS SULFATE 325 MG TABLET PO SCH ×2 (08:26→17:11)
[2017-09-16] MEDS: NYSTATIN POWDER BOTTLE TP SCH ×2 (08:27→19:42)
[2017-09-16] MEDS: MENTHOL/ZINC OXIDE 1 APPL TUBE TP PRN (10:10)
[2017-09-16] MEDS: POLYETHYLENE GLYCOL 3350 17 GM POWD.PACK PO SCH (11:06)
[2017-09-16] MEDS: RIVAROXABAN 15 MG TABLET PO SCH (17:11)
[2017-09-16] MEDS: INSULIN DETEMIR 100 UNIT/ML 3ML PEN.INJCTR SQ SCH (19:38)
[2017-09-17] MEDS ORDERED: CALCIUM CARB 500/VIT D 200 1 EACH TABLET ONE (05:50)
[2017-09-17] MEDS: FUROSEMIDE 20 MG TABLET PO SCH ×2 (06:02→14:37)
[2017-09-17] MEDS: INSULIN LISPRO 100 UNIT/ML 3ML VIAL SQ SCH ×3 (07:38→17:00)
[2017-09-17] MEDS: FERROUS SULFATE 325 MG TABLET PO SCH ×2 (08:43→17:01)
[2017-09-17] MEDS: predniSONE 10 MG TABLET PO SCH ×2 (08:44→20:33)
[2017-09-17] MEDS: NYSTATIN POWDER BOTTLE TP SCH ×2 (08:44→20:39)
[2017-09-17] MEDS: METOPROLOL SUCCINATE 50 MG TAB.ER.24H PO SCH (08:44)
[2017-09-17] MEDS: CALCIUM CARBONATE PO SCH (08:44)
[2017-09-17] MEDS: [UNRECOGNIZED DRUG - OTHER] PO SCH (08:44)
[2017-09-17] MEDS: SIMVASTATIN 40 MG TABLET PO SCH (08:45)
[2017-09-17] MEDS: ALLOPURINOL 100 MG TABLET PO SCH (08:45)
[2017-09-17] MEDS: POLYETHYLENE GLYCOL 3350 17 GM POWD.PACK PO SCH (11:37)
[2017-09-17] MEDS: RIVAROXABAN 15 MG TABLET PO SCH (17:01)
[2017-09-17] MEDS: INSULIN DETEMIR 100 UNIT/ML 3ML PEN.INJCTR SQ SCH (20:53)
[2017-09-18] MEDS ORDERED: CALCIUM CARB 500/VIT D 200 1 EACH TABLET ONE (01:50)
[2017-09-18] MEDS: FUROSEMIDE 20 MG TABLET PO SCH ×2 (06:08→15:07)
[2017-09-18] MEDS: CALCIUM CARBONATE PO SCH (08:22)
[2017-09-18] MEDS: [UNRECOGNIZED DRUG - OTHER] PO SCH (08:22)
[2017-09-18] MEDS: FERROUS SULFATE 325 MG TABLET PO SCH ×2 (08:22→16:44)
[2017-09-18] MEDS: NYSTATIN POWDER BOTTLE TP SCH ×2 (08:23→20:02)
[2017-09-18] MEDS: predniSONE 10 MG TABLET PO SCH ×2 (08:23→20:01)
[2017-09-18] MEDS: ALLOPURINOL 100 MG TABLET PO SCH (08:24)
[2017-09-18] MEDS: METOPROLOL SUCCINATE 50 MG TAB.ER.24H PO SCH (08:24)
[2017-09-18] MEDS: SIMVASTATIN 40 MG TABLET PO SCH (08:24)
[2017-09-18] MEDS: INSULIN LISPRO 100 UNIT/ML 3ML VIAL SQ SCH ×2 (09:26→12:32)
[2017-09-18] MEDS: POLYETHYLENE GLYCOL 3350 17 GM POWD.PACK PO SCH (12:20)
[2017-09-18] MEDS: RIVAROXABAN 15 MG TABLET PO SCH ×2 (16:44→20:01)
[2017-09-18] MEDS: INSULIN DETEMIR 100 UNIT/ML 3ML PEN.INJCTR SQ SCH (20:05)
[2017-09-19] MEDS ORDERED: CALCIUM CARB 500/VIT D 200 1 EACH TABLET ONE (00:48)
[2017-09-19] MEDS: FUROSEMIDE 20 MG TABLET PO SCH ×2 (06:31→14:13)
[2017-09-19] MEDS: FERROUS SULFATE 325 MG TABLET PO SCH ×2 (09:06→16:36)
[2017-09-19] MEDS: ALLOPURINOL 100 MG TABLET PO SCH (09:06)
[2017-09-19] MEDS: CALCIUM CARBONATE PO SCH (09:06)
[2017-09-19] MEDS: [UNRECOGNIZED DRUG - OTHER] PO SCH (09:06)
[2017-09-19] MEDS: SIMVASTATIN 40 MG TABLET PO SCH (09:06)
[2017-09-19] MEDS: METOPROLOL SUCCINATE 50 MG TAB.ER.24H PO SCH (09:07)
[2017-09-19] MEDS: NYSTATIN POWDER BOTTLE TP SCH ×2 (09:07→20:12)
[2017-09-19] MEDS: predniSONE 10 MG TABLET PO SCH ×2 (09:07→20:12)
[2017-09-19] MEDS: INSULIN LISPRO 100 UNIT/ML 3ML VIAL SQ SCH ×4 (09:09→19:08)
[2017-09-19] MEDS: POLYETHYLENE GLYCOL 3350 17 GM POWD.PACK PO SCH (11:03)
[2017-09-19] MEDS: MENTHOL/ZINC OXIDE 1 APPL TUBE TP PRN (16:37)
[2017-09-19] MEDS: INSULIN DETEMIR 100 UNIT/ML 3ML PEN.INJCTR SQ SCH (20:13)
[2017-09-19] MEDS: traMADol HCL 50 MG TABLET PO PRN (20:19)
[2017-09-20] MEDS: FUROSEMIDE 20 MG TABLET PO SCH ×2 (06:31→13:45)
[2017-09-20] MEDS: traMADol HCL 50 MG TABLET PO PRN (06:33)
--- NOTE | 2017-09-20 08:38 | Inpatient Progress Note ---
Subjective - Required Recertification Statement I anticipate X number of days because-include discharge plan: 10 - Review of Systems Subjective: Feeling ok. No complaints. Objective - Exam Vitals and I&O: Vital Signs Temp 99.0 F 09/19/17 19:46 Pulse 74 09/19/17 19:53 Resp 16 09/19/17 19:53 BP 155/72 09/19/17 19:46 Pulse Ox 97 09/19/17 19:46 Intake & Output 09/19/17 09/19/17 09/20/17 11:59 23:59 11:59 Intake Total 1080 1800 120 Output Total 1500 1100 Balance -420 1800 -980 Intake: Oral 1080 1800 120 Output: Urine 1500 1100 Other: Voiding Method Urinal Urinal # Voids 3 3 2 General: Alert, Oriented to Person, Oriented to Place, Oriented to Time, Cooperative, No acute distress Lungs: Clear to auscultation, Normal air movement, Speaks full Sentences Cardiovascular: Regular rate Assessment/Plan - Assessment/Plan (1) Uncontrolled diabetes mellitus Status: Acute Current Visit: No Qualifiers: Diabetes mellitus type: type 2 Diabetes mellitus complication status: with other specified complication Diabetes mellitus terminal system operator insulin use: with terminal system operator use Qualified Code(s): E11.69 - Type 2 diabetes mellitus with other specified complication; E11.65 - Type 2 diabetes mellitus with hyperglycemia; Z79.4 - [facility] (current) use of insulin Plan: BS 170-200. Increase levemir to 28 units. (2) Venous stasis dermatitis of both lower extremities Status: Acute Current Visit: No (3) Weakness Status: Acute Current Visit: No (4) Atrial fibrillation Status: Chronic Current Visit: No Qualifiers: Atrial fibrillation type: chronic Qualified Code(s): I48.2 - Chronic atrial fibrillation (5) Skin lesion Status: Acute Current Visit: Yes Plan: R shoulder escar gone now. Will do MERY and bandaid until healed.
[2017-09-20] MEDS: INSULIN LISPRO 100 UNIT/ML 3ML VIAL SQ SCH ×3 (08:41→17:36)
[2017-09-20] MEDS: predniSONE 10 MG TABLET PO SCH ×2 (08:43→20:09)
[2017-09-20] MEDS: FERROUS SULFATE 325 MG TABLET PO SCH ×2 (08:43→17:36)
[2017-09-20] MEDS: METOPROLOL SUCCINATE 50 MG TAB.ER.24H PO SCH (08:44)
[2017-09-20] MEDS: NYSTATIN POWDER BOTTLE TP SCH ×2 (08:44→20:09)
[2017-09-20] MEDS: SIMVASTATIN 40 MG TABLET PO SCH (08:45)
[2017-09-20] MEDS: ALLOPURINOL 100 MG TABLET PO SCH (08:46)
[2017-09-20] MEDS ORDERED: NEOMYCIN SU/BACITRAC ZN/POLY 1 EACH OINT.PACK TP SCH (09:00)
[2017-09-20] MEDS: SODIUM CHLORIDE NASAL SPRAY NS SCH ×4 (09:03→20:12)
[2017-09-20] MEDS ORDERED: CALCIUM CARB 500/VIT D 200 1 EACH TABLET ONE (10:09)
[2017-09-20] MEDS: CALCIUM CARBONATE PO SCH (10:12)
[2017-09-20] MEDS: [UNRECOGNIZED DRUG - OTHER] PO SCH (10:12)
[2017-09-20] MEDS: POLYETHYLENE GLYCOL 3350 17 GM POWD.PACK PO SCH (11:41)
[2017-09-20] MEDS: RIVAROXABAN 15 MG TABLET PO SCH (17:33)
[2017-09-20] MEDS: INSULIN DETEMIR 100 UNIT/ML 3ML PEN.INJCTR SQ SCH (20:07)
[2017-09-21] MEDS ORDERED: CALCIUM CARB 500/VIT D 200 1 EACH TABLET ONE (05:42)
[2017-09-21] MEDS: FUROSEMIDE 20 MG TABLET PO SCH ×2 (06:06→15:43)
[2017-09-21] MEDS: INSULIN LISPRO 100 UNIT/ML 3ML VIAL SQ SCH ×3 (08:03→17:27)
[2017-09-21] MEDS: predniSONE 10 MG TABLET PO SCH ×2 (09:39→20:13)
[2017-09-21] MEDS: CALCIUM CARBONATE PO SCH (09:39)
[2017-09-21] MEDS: [UNRECOGNIZED DRUG - OTHER] PO SCH (09:39)
[2017-09-21] MEDS: FERROUS SULFATE 325 MG TABLET PO SCH ×2 (09:39→17:23)
[2017-09-21] MEDS: SODIUM CHLORIDE NASAL SPRAY NS SCH ×4 (09:40→20:17)
[2017-09-21] MEDS: NYSTATIN POWDER BOTTLE TP SCH ×2 (09:40→20:16)
[2017-09-21] MEDS: METOPROLOL SUCCINATE 50 MG TAB.ER.24H PO SCH (09:40)
[2017-09-21] MEDS: ALLOPURINOL 100 MG TABLET PO SCH (09:41)
[2017-09-21] MEDS: SIMVASTATIN 40 MG TABLET PO SCH (09:41)
[2017-09-21] MEDS: POLYETHYLENE GLYCOL 3350 17 GM POWD.PACK PO SCH (12:27)
[2017-09-21] MEDS: RIVAROXABAN 15 MG TABLET PO SCH (17:23)
[2017-09-21] MEDS: INSULIN DETEMIR 100 UNIT/ML 3ML PEN.INJCTR SQ SCH (20:30)
[2017-09-22] MEDS ORDERED: CALCIUM CARB 500/VIT D 200 1 EACH TABLET ONE (06:08)
[2017-09-22] MEDS: FUROSEMIDE 20 MG TABLET PO SCH ×2 (06:25→13:41)
[2017-09-22] MEDS: INSULIN LISPRO 100 UNIT/ML 3ML VIAL SQ SCH ×3 (09:28→17:32)
[2017-09-22] MEDS: CALCIUM CARBONATE PO SCH (09:30)
[2017-09-22] MEDS: NYSTATIN POWDER BOTTLE TP SCH ×2 (09:30→20:18)
[2017-09-22] MEDS: [UNRECOGNIZED DRUG - OTHER] PO SCH (09:30)
[2017-09-22] MEDS: SODIUM CHLORIDE NASAL SPRAY NS SCH ×4 (09:30→20:15)
[2017-09-22] MEDS: METOPROLOL SUCCINATE 50 MG TAB.ER.24H PO SCH (09:30)
[2017-09-22] MEDS: FERROUS SULFATE 325 MG TABLET PO SCH ×2 (09:30→17:34)
[2017-09-22] MEDS: predniSONE 10 MG TABLET PO SCH ×2 (09:30→20:13)
[2017-09-22] MEDS: ALLOPURINOL 100 MG TABLET PO SCH (09:32)
[2017-09-22] MEDS: SIMVASTATIN 40 MG TABLET PO SCH (09:32)
[2017-09-22] MEDS: POLYETHYLENE GLYCOL 3350 17 GM POWD.PACK PO SCH (11:58)
[2017-09-22] MEDS: RIVAROXABAN 15 MG TABLET PO SCH (17:34)
[2017-09-22] MEDS: INSULIN DETEMIR 100 UNIT/ML 3ML PEN.INJCTR SQ SCH (20:14)
[2017-09-23] MEDS ORDERED: CALCIUM CARB 500/VIT D 200 1 EACH TABLET ONE (04:20)
[2017-09-23] MEDS: FUROSEMIDE 20 MG TABLET PO SCH (05:26)
[2017-09-23] MEDS: INSULIN LISPRO 100 UNIT/ML 3ML VIAL SQ SCH ×2 (07:47→12:35)
[2017-09-23] MEDS: predniSONE 10 MG TABLET PO SCH (08:52)
[2017-09-23] MEDS: CALCIUM CARBONATE PO SCH (08:52)
[2017-09-23] MEDS: ALLOPURINOL 100 MG TABLET PO SCH (08:52)
[2017-09-23] MEDS: METOPROLOL SUCCINATE 50 MG TAB.ER.24H PO SCH (08:52)
[2017-09-23] MEDS: [UNRECOGNIZED DRUG - OTHER] PO SCH (08:52)
[2017-09-23] MEDS: FERROUS SULFATE 325 MG TABLET PO SCH (08:52)
[2017-09-23] MEDS: NYSTATIN POWDER BOTTLE TP SCH (08:54)
--- NOTE | 2017-09-23 09:59 | Discharge Summary ---
Discharge Summary - Discharge Sumary History of Present Illness: Patient had been admitted to [facility] last week after a stay at [facility] due to cellulitis with bacteremia. Thought to be too weak to participate in PT so admitted to [facility] with some therapy. Patient has progressed and getting stronger so therapy thought he now would do better in SNF. His BS have been up and down - non compliant patient - eating a lot of candy. Condition at Discharge: Stable Home Medications: Ambulatory Orders Medication Instructions Recorded Ferrous Sulfate [Feosol] 325 mg PO BID #60 tablet 07/08/17 Polyethylene Glycol 3350 [Miralax] 17 gm PO 1100 #30 powd.pack 07/08/17 Allopurinol [Zyloprim] 100 mg PO QD 09/13/17 Calcium Carbonate/Vitamin D3 1 tab PO DAILY 09/13/17 [Calcium 500 + Vit D 200 Tablet] Ferrous Sulfate [Feosol] 325 mg PO BID 09/13/17 Furosemide [Lasix] 60 mg PO 714 09/13/17 Insulin Glargine,Hum.rec.anlog 20 unit SQ HS 09/13/17 [Lantus Solostar] Insulin Lispro [Humalog] 15 unit SQ AC15 09/13/17 Menthol/Zinc Oxide [Calmoseptine 1 appl TOP PRN PRN 09/13/17 Ointment] Nystatin Powder [Nystop] 1 appl TP BID 09/13/17 Tramadol HCl [Ultram] 50 mg PO Q6 PRN 09/13/17 Consultations this Visit: None Procedures this Visit: None Allergies/Adverse Reactions: Allergies Allergy/AdvReac Type Severity Reaction Status Date / Time No Known Allergies Allergy Verified 06/25/17 11:18 Discharge Summary: Patient received SNF services of PT/OT. He progressed as far as therapy thought he might. I thought ICF was best next step but family wants to try him at home. Sent home with Home Health Orders. Blood sugars much more controlled when diet compliant and family stopped sending him in food. Skin issues began to heal. Edema was at baseline. Hospital Course: Discharge Dx: Weakness. Uncontrolled HTN. cellulitis with bacteremia. Uncontrolled DM. Edema. Disposition - home with home health.
[2017-09-23] MEDS: SODIUM CHLORIDE NASAL SPRAY NS SCH ×2 (10:12→13:43)
[2017-09-23] MEDS: SIMVASTATIN 40 MG TABLET PO SCH (10:26)
[2017-09-23] MEDS: POLYETHYLENE GLYCOL 3350 17 GM POWD.PACK PO SCH (13:43)
[2017-09-23 13:48] VITALS: BP 145/89
== END 2017-09-23 13:35 | disposition home health service (06) | DRG 948 ==
LOC: UNDODISIN 13:22 → SOUTH 13:22
PROVIDERS: ADMIT Family Medicine; ATTEND Family Medicine
DX: R53.1 Weakness (principal); E11.69 Type 2 diabetes mellitus with other specified complication; Z79.4 Long term (current) use of insulin; I48.2 Chronic atrial fibrillation; I25.10 Atherosclerotic heart disease of native coronary artery without angina pectoris; I10 Essential (primary) hypertension; E78.5 Hyperlipidemia, unspecified; J44.9 Chronic obstructive pulmonary disease, unspecified; F17.210 Nicotine dependence, cigarettes, uncomplicated; N18.3 Chronic kidney disease, stage 3 (moderate); R60.0 Localized edema
CPT/HCPCS: 97110; 97116; 97161; 97165; 97530; 97535; J1815; J7512